=== PATIENT | female | born 1995 | race Hispanic/Latino ===

== ENCOUNTER 2018-01-22 13:21 | Emergency (ER) | payer OTHER, SELFPAY ==
[2018-01-22] MEDS ORDERED: Ketorolac Tromethamine 60 MG/2 ML VIAL ONE (13:45)
--- NOTE | 2018-01-22 15:04 | RAD ---
3 VIEWS RIGHT WRIST: Date: 01/22/18 INDICATION: Right wrist injury. COMPARISON: None. FINDINGS: No acute fracture or subluxation is evident. Carpal alignment appears within normal limits. IMPRESSION: No acute osseous abnormality. POS: KAY
--- NOTE | 2018-01-22 15:06 | RAD ---
AP VIEW PELVIS: Date: 01/22/18 INDICATION: History of injury. COMPARISON: None. FINDINGS: SI joints and sacral arches are within normal limits. Both hip joints appear within normal limits. No acute fracture or subluxation is evident. IMPRESSION: No acute abnormality. POS: KAY
== END 2018-01-22 14:31 | disposition home or self-care (01) ==
LOC: ERS 13:21
DX: S66.911A Strain of unspecified muscle, fascia and tendon at wrist and hand level, right hand, initial encounter (principal); S76.012A Strain of muscle, fascia and tendon of left hip, initial encounter; S76.011A Strain of muscle, fascia and tendon of right hip, initial encounter; V89.2XXA Person injured in unspecified motor-vehicle accident, traffic, initial encounter
CPT/HCPCS: 72170; 96372; J1885